=== PATIENT | male | born 2000 | race African-American/Black ===

== ENCOUNTER 2020-08-07 20:31 | Emergency (ER) | payer BC, OTHER ==
[~2020-08-07] VITALS: Ht 172.7 cm; Wt 53.5 kg
[2020-08-07] MEDS ORDERED: NOHOMEMEDICATIONS (20:37)
[2020-08-07 23:31] VITALS: BP 117/73
== END 2020-08-07 23:52 | disposition home or self-care (01) ==
LOC: ER 20:31
DX: R50.9 Fever, unspecified (principal); R11.10 Vomiting, unspecified; Z20.828 Contact with and (suspected) exposure to other viral communicable diseases